=== PATIENT | female | born 1990 | race Caucasian/White ===

== ENCOUNTER → 2021-02-13 14:52 | Outpatient (CLI) | payer OTHER, SELFPAY ==
--- NOTE | ~2021-02-13 | US_ITS ---
EXAMINATION: US pelvic complete w TV DATE: 02/13/2021 15:13 INDICATION: Pelvic pain and bleeding during intercourse TECHNIQUE: Multiple transabdominal and endovaginal sonographic images of the pelvis were obtained. COMPARISON: None. FINDINGS: The uterus measures 9 x 5.2 x 5.9 cm. The endometrial complex measures 12 mm. The right ova ry measures 3.6 x 2.1 x 2.2 cm. There is an approximately 1.3 x 1 cm complex cystic lesion of the rig ht ovary. The left ovary measures 3.8 x 1.2 x 3 cm. There is normal vascular flow in the ovaries. The re is no free fluid in the pelvis. IMPRESSION: 1. Small complex cystic lesion of the right ovary, possibly hemorrhagic cyst assuming the patient is not . Follow-up ultrasound in 6-12 weeks is recommended. Reviewed, dictated and finalized at location B. [facility] IMPRESSION: 1. Small complex cystic lesion of the right ovary, possibly hemorrhagic cyst as suming the patient is not . Follow-up ultrasound in 6-12 weeks is recom mended.
== END ==
PROVIDERS: Visit Provider Physician Assistant
DX: R10.2 Pelvic and perineal pain (principal); N93.0 Postcoital and contact bleeding; N83.201 Unspecified ovarian cyst, right side
CPT/HCPCS: 76830; 76856

== ENCOUNTER → 2021-03-23 08:30 | Outpatient (CLI) | payer OTHER, SELFPAY ==
--- NOTE | ~2021-03-23 | US_ITS ---
EXAMINATION: US pelvic complete w TV DATE: 03/23/2021 09:10 INDICATION: Follow-up ovarian cysts. Comparison:02/13/2021 TECHNIQUE: Multiple transabdominal and endovaginal sonographic images of the pelvis performed. FINDINGS: The uterus measures 8.4 x 4.7 x 6.1 cm. The endometrial complex measures 7 mm. The right ovary measures 2.6 x 3.2 x 1.9 cm and the left ovary measures 3.1 x 2.1 x 3.7 cm. There ar e small follicles in each ovary. Normal doppler signal in both ovaries. There is no free fluid in the pelvis. There are no abnormal masses seen on either side. IMPRESSION: 1. Normal pelvic ultrasound. Reviewed, dictated and finalized at location A. [facility]
== END ==
PROVIDERS: Visit Provider Physician Assistant
DX: N83.201 Unspecified ovarian cyst, right side (principal)
CPT/HCPCS: 76830; 76856